=== PATIENT | male | born 1960 | race African-American/Black ===

== ENCOUNTER 2020-12-19 02:03 | Emergency (ER) | payer OTHER ==
[2020-12-19] MEDS ORDERED: SUCCINYLCHOLINE 20 MG/ML (10 ML) IV ONE (02:04)
[2020-12-19] MEDS ORDERED: ETOMIDATE 20 MG/10 ML VIAL IV ONE (02:04)
[2020-12-19 03:20] LABS: Absolute Lymphocytes (CBC) 2.8 K/uL (0.7-4.9); Basophils % 0.8 % (0-1.3); Lymphocytes % 37.2 % (15.3-44.8); MPV 9.8 fL (7.6-11.3); RBC Red Blood Cell Count 4.12 M/uL (4.33-5.43)
[2020-12-19 03:42] LABS: ALT/SGPT 140 U/L (12-78); AST/SGOT 169 U/L (15-37); Albumin 3.3 g/dL (3.4-5.0); Alkaline Phosphatase 369 U/L (45-117); BUN Blood Urea Nitrogen 53 mg/dL (7-18); Bicarbonate 17 mmol/L (21-32); Bilirubin Direct 0.2 mg/dL (0-0.2); Bilirubin Total 0.5 mg/dL (0.2-1.0); Glucose Level 217 mg/dL (74-106); Lipase 177 U/L (73-393); Magnesium 2.7 mg/dL (1.8-2.4); NT PRO-BNP > 35000 pg/mL (<125); Potassium 3.5 mmol/L (3.5-5.1); Protein, Total 7.7 g/dL (6.4-8.2); Sodium Level 144 mmol/L (136-145); Troponin (Emerg Dept Use Only) 0.03 ng/mL (0.0-0.045)
[2020-12-19] MEDS ORDERED: NA CHLORIDE 0.9% 500 ML ONE ×2 (03:54→05:39)
[2020-12-19] MEDS ORDERED: ATROPINE SULF 1 MG/10 ML SYR IV ONE (03:54)
[2020-12-19] MEDS ORDERED: INSULIN -REGULAR HUMAN 50 UNIT/0.5 ML ML ONE (04:01)
[2020-12-19] MEDS ORDERED: RSI MEDICATION KIT IV ONE (04:02)
[2020-12-19] MEDS ORDERED: D50W 50 ML IV ONE (04:02)
[2020-12-19] MEDS ORDERED: DOPAMINE/D5W 400 MG/250 ML BAG IV ONE (04:07)
[2020-12-19] MEDS ORDERED: CALCIUM GLUCONATE 1 GM IVPB 1 GM/50 ML BAG IV ONE (04:11)
[2020-12-19] MEDS ORDERED: MIDAZOLAM HCL 2 MG/2 ML INJ ONE ×2 (04:21→05:39)
[2020-12-19] MEDS ORDERED: FENTANYL CITR 100 MCG/2 ML ONE ×2 (04:57→05:39)
[2020-12-19] MEDS ORDERED: HEPARIN/D5W 25,000 UNIT/500 ML BAG IV ONE (06:00)
[2020-12-19] MEDS ORDERED: HEPARIN 5000 UNIT/ML 1 ML VIAL ONE (06:00)
--- NOTE | 2020-12-19 06:04 | ER ---
Nurse's Notes [facility] Name: Parish Chacon Age: 59 yrs Sex: Male : 1960 Arrival Date: 12/19/2020 Time: 02:06 Bed 3 Private MD: Diagnosis: Bradycardia, unspecified;Syncope and collapse;Altered mental status, unspecified;Cardiogenic shock Presentation: 12/19 02:10 Chief complaint: EMS states: was toned for syncopal episode and AMS, Pt with Hx of ESRD wh on HD and HIV. Coronavirus screen: Client denies travel out of the [place] in the last 14 days. Ebola Screen: Patient negative for fever greater than or equal to 101.5 degrees Fahrenheit, and additional compatible Ebola Virus Disease symptoms Patient denies exposure to infectious person. Initial Sepsis Screen: Does the patient meet any 2 criteria? No. Patient's initial sepsis screen is negative. Does the patient have a suspected source of infection? No. Patient's initial sepsis screen is negative. Risk Assessment: Do you want to hurt yourself or someone else? Patient reports no desire to harm self or others. Onset of symptoms was December 19, 2020. 02:10 Method Of Arrival: EMS: [facility] 02:10 Acuity: HAYLIE 3 Historical: - Allergies: 04:15 NKA; wh - PMHx: 04:15 AIDS; CVA; Dialysis; ENCEPHALOPATHY; ESRD; HIV; 04:16 HD; Diabetes - NIDDM; Seizures; wh - Immunization history:: Adult Immunizations unknown. - Family history:: not pertinent. - Social history:: Smoking status: unknown. - Hospitalizations: : No recent hospitalization is reported. Screenin:30 Abuse screen: Denies threats or abuse. Denies injuries from another. Nutritional screening: No deficits noted. Tuberculosis screening: No symptoms or risk factors identified. Fall Risk Secondary diagnosis (15 points) impaired mobility, CVA. Assessment: 02:20 General: Appears distressed, Behavior is restless. Pain: Denies pain. Neuro: Level of wh Consciousness is awake, alert, Oriented to person, place. Cardiovascular: Heart tones S1 S2 Rhythm is sinus bradycardia. Respiratory: Reports shortness of breath Airway is patent Respiratory effort is even, unlabored, Respiratory pattern is regular, symmetrical, Breath sounds are clear bilaterally. GI: Abdomen is flat, non-distended. : No deficits noted. EENT: No deficits noted. Derm: Skin is intact. Musculoskeletal: Amputation of left leg. 02:45 Reassessment: Pt still shouting, C/O shortness of breath, Sats WNL on RA, placed Pt on wh 2LNC for comfort. 03:00 Reassessment: Patient appears in no apparent distress at this time. Pt became hypotensive, notified Provider. 03:30 Reassessment: Pt was transferred to Trauma room 6 for intubation. 03:45 Reassessment: Dr Soliman gave verbal order for intubation RT notified. bb 03:50 Reassessment: Dr Soliman, Parker RT, Juana RT, yobany RN, Nadia RN, Nadeem RN, Jeanine RN, INES duron RN, and Jamal RN at bedside for intubation. Pt intubated with 7.5 ETT, 24 cm at the teeth, positive color change and bilateral breath sounds noted, X-Ray ordered for placement. 04:05 Reassessment: pt to CT scan on ventilator accompanied by RT and Nadia MADDEN. bb 05:15 Reassessment: Pt resting with eyes closed, respirations assisted, ETT in place 22 at ea the teeth. OG tube in place to low intermittent suction. Torres catheter in place to BSD with no output noted at this time. IV sites intact patent with fluid infusing, no erythema or edema noted at this time. 06:38 Reassessment: Pt resting with eyes closed, respirations assisted, ETT in place 22 at ea the teeth. OG tube in place to low intermittent suction. Torres catheter in place to BSD with no output noted at this time. IV sites intact patent with fluid infusing, no erythema or edema noted at this time. Life flight at facility for transfer, pt left ED via stretcher per life flight. Vital Signs: 02:10 BP 95 / 76; Pulse 54; Resp 18; Temp 96.2; Pulse Ox 95% on R/A; Weight 77.11 kg; Height 5 ft. 10 in. (177.80 cm); 03:00 BP 78 / 54; Pulse 41; Resp 18; Pulse Ox 94% on R/A; wh 03:30 BP 68 / 53; Pulse 38; Resp 18; Pulse Ox 94% on R/A; wh 03:53 BP 59 / 21; Pulse 65; Resp 20 A; Pulse Ox 94% on 15% BVM; bb 04:03 BP 97 / 72; Pulse 75; Resp 19 A; Pulse Ox 100% on 50% FiO2 ETT vent; bb 05:54 BP 100 / 78; Pulse 65; Resp 13; Temp 92.8; Pulse Ox 100% ; ea 06:50 BP 107 / 67; Pulse 63; Resp 18; Temp 93; Pulse Ox 100% ; ea 02:10 Body Mass Index 24.39 (77.11 kg, 177.80 cm) wh 05:54 pt currently on emmanuel hugger ea ED Course: 02:06 Patient arrived in ED. bb 02:16 Jose Angel Soliman MD is Attending Physician. rn 02:24 Jeanine Woods RN is Primary Nurse. wh 03:10 XRAY CXR (1 view) In Process Unspecified. EDMS 03:55 Assisted provider with intubation using 7.5 mm ETT via oral route. ET tube secured at bb 24cm at the teeth. Set up intubation tray. Intubated by Jose Angel Soliman MD Placement verified by CO2 detector w/ + color change, auscultating bilateral breath sounds, CXR, Patient tolerated well. 04:12 Triage completed. wh 04:20 NGT: inserted 16 Fr. other OG verified return of gastric contents, to intermittent ea suction. Returned gastric contents. Patient tolerated well. 04:27 CT Head Brain wo Cont In Process Unspecified. EDMS 04:27 CT Chest Abdomen Pelvis W/O Contrast In Process Unspecified. EDMS 04:32 CXR XRAY In Process Unspecified. EDMS 04:35 Inserted saline lock: 22 gauge in right hand, using aseptic technique. ea 04:40 Torres cath inserted, using sterile technique, 16 Fr., by ne, balloon inflated, to ea gravity drainage. 05:11 Initiated transfer at [facility] with Marianne. Stated she would do a bed check and tt3 call back. 05:23 Marianne called back and stated at this time they have to decline due to no ICU beds. tt3 She stated to try again a little after 0700 and they may have a bed available. Information passed on to Dr. Soliman. 05:34 Initiated transfer at [facility] with Allyson Green. Stated she would do a tt3 capacity check and call back. 06:42 XRAY Chest (1 view) In Process Unspecified. EDMS 06:48 Primary Nurse role handed off by Jeanine Woods, RN tt3 06:51 Patient transferred, IV remains in place. ea Administered Medications: 03:23 Drug: NS 0.9% 500 ml Route: IV; Rate: bolus; Site: right forearm; 03:25 Drug: Atropine 0.5 mg Route: IVP; Site: right forearm; 06:56 Follow up: Response: No adverse reaction ea 03:30 Drug: D50W 50 ml Route: IVP; Site: right forearm; 06:56 Follow up: Response: No adverse reaction ea 03:32 Drug: Insulin Regular Human 5 units {Co-Signature: al (Philip Alcantar RN).} Route: IVP; Site: right forearm; 04:00 Follow up: Response: No adverse reaction ea 03:50 Drug: Dopamine drip 5 mcg/kg/min - (DOPamine 400 mg, D5W 250 ml) Route: IV; Rate: bb calculated rate; Site: right forearm; 03:53 Drug: Etomidate 20 mg Route: IVP; Site: right forearm; bb 06:56 Follow up: Response: No adverse reaction ea 03:54 Drug: Succinylcholine 120 mg Route: IVP; Site: right forearm; bb 06:57 Follow up: Response: No adverse reaction ea 04:05 Drug: Versed (midazolam) 2 mg Route: IVP; Site: right forearm; bb 06:56 Follow up: Response: No adverse reaction ea 04:09 Not Given (Physician Discretion): Calcium Gluconate 1 grams IVPB once over 60 mins; (mix in NS 100 mL) 05:28 Drug: fentaNYL (PF) 50 mcg Route: IVP; Site: right femoral; ea 06:58 Follow up: Response: No adverse reaction ea 05:30 Drug: Versed (midazolam) 2 mg Route: IVP; Site: right femoral; ea 06:58 Follow up: Response: No adverse reaction ea 05:35 Drug: Sodium Bicarbonate 1 amp Route: IVP; Site: right femoral; ea 06:57 Follow up: Response: No adverse reaction ea 05:48 Drug: Heparin (TX-Bolus No thrombolytic) - HEParin 60 units/kg {Co-Signature: (Jeanine Woods RN).} Route: IVP; Site: right femoral; 06:57 Follow up: Response: No adverse reaction ea 05:48 Drug: Heparin (TX Drip) 12 units/kg/hr - (HEParin 70628 units, D5W 500 ml) ea {Co-Signature: wh (Jeanine Woods RN).} Route: IV; Rate: calculated rate; Site: right femoral; 06:57 Follow up: Response: No adverse reaction; IV Status: Infusion continued upon transfer ea 06:20 Drug: Sodium Bicarbonate 1 amp Route: IVP; Site: right femoral; ea 06:57 Follow up: Response: No adverse reaction ea Ventilator: 04:13 Fi02: 50%; Rate: 16min; T.V.: 500ml; Peep: 5cm; Mode: CMV; ET tube: 7.5 mm (Oral); domi Outcome: 06:03 ER care complete, transfer ordered by . rn 06:36 Condition: stable ea 06:36 Instructed on the need for transfer. 06:52 Transferred by helicopter to [facility], Transfer form completed. ea 06:55 Patient left the ED. ea Signatures: Dispatcher [employer] EDMS Sierra Briceño RN RN bb Nieto, Roman, MD MD rn Antunez, Elena, RN RN ea Habalo, Winsy, RN RN wh Trim, Tyler tt3 Philip Alcantar RN [email or web address] Jeanine Woods RN Corrections: (The following items were deleted from the chart) 05:07 02:10 BP 95 / 76; Pulse 6bpm; Resp 29bpm; Pulse Ox 95% RA; Temp 97.2F; 77.11 kg; Height wh 5 ft. 10 in.; BMI: 24.3; wh 06:17 02:10 BP 95 / 76; Pulse 6bpm; Resp 29bpm; Pulse Ox 95% RA; Temp 97.2F; 77.11 kg; Height wh 5 ft. 10 in.; BMI: 24.3; wh
--- NOTE | 2020-12-19 06:04 | EDPHYS ---
Physician Documentation [facility] Name: Parish Chacon Age: 59 yrs Sex: Male : 1960 Arrival Date: 12/19/2020 Time: 02:06 Bed 3 Private MD: ED Physician Jose Angel Soliman HPI: 12/19 03:02 This 59 yrs old Black Male presents to ER via Unassigned with complaints of AMS, sob. rn 03:02 The patient has shortness of breath at rest. Onset: The symptoms/episode began/occurred rn at an unknown time. Duration: The symptoms are continuous. The patient's shortness of breath is aggravated by nothing, is alleviated by nothing. Associated signs and symptoms: Pertinent negatives: fever, hemoptysis. Severity of symptoms: At their worst the symptoms were moderate in the emergency department the symptoms are unchanged. It is unknown whether or not the patient has had similar symptoms in the past. It is unknown whether or not the patient has recently seen a physician. Per EMS, someone called 911 for AMS, sob, possible syncope. No seizure activity noted by EMS, no meds given. Patient reports hx of ESRD, HIV, and states "i can't breathe". No abd pain. . Historical: - Allergies: 04:15 NKA; wh - PMHx: 04:15 AIDS; CVA; Dialysis; ENCEPHALOPATHY; ESRD; HIV; wh 04:16 HD; Diabetes - NIDDM; Seizures; wh - Immunization history:: Adult Immunizations unknown. - Family history:: not pertinent. - Social history:: Smoking status: unknown. - Hospitalizations: : No recent hospitalization is reported. ROS: 03:02 Unable to obtain ROS due to altered mental status. rn Exam: 03:02 Constitutional: Thin male, + mild tachypnea, seems agitated Head/Face: Normocephalic, rn atraumatic. ENT: dry MM, no stridor Cardiovascular: Bradycardic, irregular. No pulse deficits. Respiratory: + mild tachypnea, + diminished at bases. Abdomen/GI: soft, non-tender Skin: Warm, dry with normal turgor. Normal color with no rashes, no lesions, and no evidence of cellulitis. MS/ Extremity: + LLE AKA Neuro: Awake, alert, uncooperative, only says "i can't breathe" Vital Signs: 02:10 BP 95 / 76; Pulse 54; Resp 18; Temp 96.2; Pulse Ox 95% on R/A; Weight 77.11 kg; Height wh 5 ft. 10 in. (177.80 cm); 03:00 BP 78 / 54; Pulse 41; Resp 18; Pulse Ox 94% on R/A; wh 03:30 BP 68 / 53; Pulse 38; Resp 18; Pulse Ox 94% on R/A; wh 03:53 BP 59 / 21; Pulse 65; Resp 20 A; Pulse Ox 94% on 15% BVM; bb 04:03 BP 97 / 72; Pulse 75; Resp 19 A; Pulse Ox 100% on 50% FiO2 ETT vent; bb 05:54 BP 100 / 78; Pulse 65; Resp 13; Temp 92.8; Pulse Ox 100% ; ea 06:50 BP 107 / 67; Pulse 63; Resp 18; Temp 93; Pulse Ox 100% ; ea 02:10 Body Mass Index 24.39 (77.11 kg, 177.80 cm) 05:54 pt currently on emmanuel hugger ea Ventilator: 04:13 Fi02: 50%; Rate: 16min; T.V.: 500ml; Peep: 5cm; Mode: CMV; ET tube: 7.5 mm (Oral); bb Procedures: 04:14 Intubation: Ventilated with 100% NRB prior to procedure. O2 saturation prior to employee benefits attorney was 94 %. Intubated orally using # 4 Rudy blade with 7.5 mm ETT. was successful on first attempt. Cricoid pressure applied during procedure. Tube secured with ETT samson at right side of mouth measured 23 cm at teeth. Placement verified by CO2 detector with (+) color change, auscultating bilateral breath sounds, O2 saturation after procedure was 96 %. Patient tolerated well. 05:57 Central Line: the site was prepped with Betadine, a triple lumen catheter was inserted, rn in the right femoral vein, in 1 attempts. placement was verified, by blood return, the site was dressed with Tegaderm, using sterile technique, the patient tolerated the procedure, well. MDM: 02:16 Patient medically screened. rn 04:14 ED course: Pt became more bradycardic, altered, hypotensive, treated empirically for rn hyperkalemia given ESRD patient with irregular and bradycardic rhythm prior to obtaining bloodwork given unstable vitals. Pt also intubated for airway protection and patient was not cooperating with IV placement or treatment/imaging. Started on dopamine with improvement of vitals including elevation of HR and BP, sent to CT.. 05:13 ED course: No acute findings on CT head/chest/abdomen/pelvis, most likely symptomatic rn bradycardia with syncope at home and AMS here. Intubated, improved vitals, on dopamine drip. Neg trop. K+ normal. Will attempt transfer to [facility] ICU given severe bradycardia and possible need for pacemaker, as well as no icu beds here. . 05:57 ED course: [facility] states no ICU bed currently, think might have one at shift change.. rn 06:01 Differential diagnosis: Myocardial Infarction pneumonia, Pneumothorax pulmonary edema, rn Unstable Angina symptomatic bradycardia. Data reviewed: vital signs, nurses notes, lab test result(s), EKG, radiologic studies, CT scan, plain films, and as a result, I will admit patient. Counseling: I had a detailed discussion with the patient and/or guardian regarding: the historical points, exam findings, and any diagnostic results supporting the discharge/admit diagnosis, lab results, radiology results, the need to transfer to another facility, for higher level of care, [facility] does not immediately have the required specialist. Response to treatment: the patient's symptoms have mildly improved after treatment, and as a result, I will admit patient. Admission orders: after a detailed discussion of the patient's condition and case, the admit orders are written by me. ED course: Pt accepted by Dr. Correa at [facility] without conference. . 06:01 ED course: Requesting lifeflight. rn 12/19 02:21 Order name: Blood Culture Adult (2) rn 12/19 02:21 Order name: BMP; Complete Time: 05: rn 12/19 02:21 Order name: CBC with Diff; Complete Time: 03:31 rn 12/19 02:21 Order name: Hepatic Function; Complete Time: 05: rn 12/19 02:21 Order name: Lipase; Complete Time: 05: rn 12/19 02:21 Order name: Magnesium; Complete Time: 05: rn 12/19 02:21 Order name: XRAY CXR (1 view) rn 12/19 02:21 Order name: NT PRO-BNP; Complete Time: 05:06 rn 12/19 02:21 Order name: Troponin (emerg Dept Use Only); Complete Time: 05:06 rn 12/19 02:22 Order name: Procalcitonin; Complete Time: 05:06 rn 12/19 03:06 Order name: COVID-19 : Document "Date of Symptom Onset" if Symptomatic. [email or web address] 12/19 03:09 Order name: Glucose, Ancillary Testing; Complete Time: 03:31 EDMS 12/19 04:05 Order name: SARS-COV-2 RT PCR; Complete Time: 05:06 EDMS 12/19 02:22 Order name: CT Head Brain wo Cont rn 12/19 03:58 Order name: CT Chest Abdomen Pelvis W/O Contrast rn 12/19 04:09 Order name: CXR XRAY tt3 12/19 05:12 Order name: XRAY Chest (1 view) rn 12/19 02:21 Order name: EKG; Complete Time: 02:22 rn 12/19 02:21 Order name: Cardiac monitoring; Complete Time: 03:14 rn 12/19 02:21 Order name: EKG - Nurse/Tech; Complete Time: 03:14 rn 12/19 02:21 Order name: IV Saline Lock; Complete Time: 03:14 rn 12/19 02:21 Order name: Labs collected and sent; Complete Time: 03:14 rn 12/19 02:21 Order name: O2 Per Protocol; Complete Time: 03:15 rn 12/19 02:22 Order name: O2 Sat Monitoring; Complete Time: 03:15 rn Administered Medications: 03:23 Drug: NS 0.9% 500 ml Route: IV; Rate: bolus; Site: right forearm; wh 03:25 Drug: Atropine 0.5 mg Route: IVP; Site: right forearm; wh 06:56 Follow up: Response: No adverse reaction ea 03:30 Drug: D50W 50 ml Route: IVP; Site: right forearm; wh 06:56 Follow up: Response: No adverse reaction ea 03:32 Drug: Insulin Regular Human 5 units {Co-Signature: [email or web address] (Philip Alcantar RN).} Route: wh IVP; Site: right forearm; 04:00 Follow up: Response: No adverse reaction ea 03:50 Drug: Dopamine drip 5 mcg/kg/min - (DOPamine 400 mg, D5W 250 ml) Route: IV; Rate: bb calculated rate; Site: right forearm; 03:53 Drug: Etomidate 20 mg Route: IVP; Site: right forearm; bb 06:56 Follow up: Response: No adverse reaction ea 03:54 Drug: Succinylcholine 120 mg Route: IVP; Site: right forearm; bb 06:57 Follow up: Response: No adverse reaction ea 04:05 Drug: Versed (midazolam) 2 mg Route: IVP; Site: right forearm; bb 06:56 Follow up: Response: No adverse reaction ea 04:09 Not Given (Physician Discretion): Calcium Gluconate 1 grams IVPB once over 60 mins; ata (mix in NS 100 mL) 05:28 Drug: fentaNYL (PF) 50 mcg Route: IVP; Site: right femoral; ea 06:58 Follow up: Response: No adverse reaction ea 05:30 Drug: Versed (midazolam) 2 mg Route: IVP; Site: right femoral; ea 06:58 Follow up: Response: No adverse reaction ea 05:35 Drug: Sodium Bicarbonate 1 amp Route: IVP; Site: right femoral; ea 06:57 Follow up: Response: No adverse reaction ea 05:48 Drug: Heparin (ME-Bolus No thrombolytic) - HEParin 60 units/kg {Co-Signature: ata (Jeanine Woods RN).} Route: IVP; Site: right femoral; 06:57 Follow up: Response: No adverse reaction ea 05:48 Drug: Heparin (ME Drip) 12 units/kg/hr - (HEParin 87246 units, D5W 500 ml) ea {Co-Signature: ata (Jeanine Woods RN).} Route: IV; Rate: calculated rate; Site: right femoral; 06:57 Follow up: Response: No adverse reaction; IV Status: Infusion continued upon transfer ea 06:20 Drug: Sodium Bicarbonate 1 amp Route: IVP; Site: right femoral; ea 06:57 Follow up: Response: No adverse reaction ea Disposition: 06:01 Critical Care:. rn Disposition: 12/19/20 06:03 Transfer ordered to [facility]. Diagnosis are Bradycardia, unspecified, Syncope and collapse, Altered mental status, unspecified, Cardiogenic shock. - Reason for transfer: Higher level of care. - Accepting physician is Dr. Correa. - Condition is Serious. - Problem is new. - Symptoms have improved. Critical care time excluding procedures: 06:01 Critical care time: Bedside Care: 45 minutes. Total time: 45 minutes rn Signatures: Dispatcher [employer] EDCA Sierra Briceño, RN Jose Angel Wylie MD MD rn Antunez, Elena, RN RN ea Habalo, Winsy, RN RN wh Joseph Malcaba RN jmDeborah Woods RN Corrections: (The following items were deleted from the chart) 03:12 03:06 CORONAVIRUS ordered. EDCA EDMS 05:15 03:02 Constitutional: Thin male, + mild tachypnea, seems agitated Head/Face: rn Normocephalic, atraumatic. ENT: dry MM, no stridor Cardiovascular: Bradycardic, irregular. No pulse deficits. Respiratory: + mild tachypnea, + diminished at bases. Abdomen/GI: soft, non-tender Skin: Warm, dry with normal turgor. Normal color with no rashes, no lesions, and no evidence of cellulitis. MS/ Extremity: Pulses equal, no cyanosis. Neurovascular intact. Full, normal range of motion. Equal circumference. Neuro: Awake, alert, uncooperative, only says "i can't breathe" rn 06:55 06:03 12/19/2020 06:03 Transfer ordered to [facility]. Diagnosis is ea Bradycardia, unspecified; Syncope and collapse; Altered mental status, unspecified; Cardiogenic shock. Reason for transfer: Higher level of care. Accepting physician is Dr. Correa. Condition is Serious. Problem is new. Symptoms have improved. rn
[2020-12-19] MEDS ORDERED: SODIUM BICARB 50 MEQ/50ML VIAL ONE (06:34)
--- NOTE | 2020-12-19 07:15 | RAD REPORT ---
EXAM DESCRIPTION: Al Single View12/19/2020 4:31 am CLINICAL HISTORY: Device placement endotracheal tube placement IMPRESSION: An endotracheal tube has been inserted with its tip well 15 millimeters above the tonio . The tip overlies mid to distal aspect of the aortic arch.
--- NOTE | 2020-12-19 07:16 | RAD REPORT ---
EXAM DESCRIPTION: Al Single View12/19/2020 6:43 am CLINICAL HISTORY: Device placement endotracheal tube placement IMPRESSION: An endotracheal tube has been retracted. The tip overlies the top of the aortic arch. Nasogastric tube is coiled within the stomach. The tip lies within the gastric fundus 3 centimeters f rom the GE junction
[2020-12-19 07:33] VITALS: O2SAT 100
[2020-12-19 07:36] VITALS: BP 107/67; TEMP 93
--- NOTE | 2020-12-19 11:01 | RAD REPORT ---
EXAM DESCRIPTION: Al Single View12/19/2020 3:10 am CLINICAL HISTORY: DYSPNEA TECHNIQUE: Single frontal view of the chest is submitted. COMPARISON: None available for comparison FINDINGS: Lungs: Mild central pulmonary vascular and interstitial prominence and patchy bilateral pe rihilar opacities. Pleura: No appreciable effusion. No pneumothorax. Heart: The cardiothoracic silhouette is enlarged. Mediastinum: Thoracic aortic atherosclerosis. Bones: Intact Upper abdomen: Unremarkable IMPRESSION: Findings which may be related to mild pulmonary congestion. Superimposed infection not e xcluded. Electronically signed by: Abi Garcia MD 12/19/2020 3:19 AM CDT Due to temporary technical issues with the PACS/Fluency reporting system, reports are being signed by the in house radiologist without review as a courtesy to ensure prompt reporting. The interpreting r adiologist is fully responsible for the content of the report.
--- NOTE | 2020-12-19 11:28 | RAD REPORT ---
EXAM DESCRIPTION: CT - Chest Abd Pelvis Wo Con - 12/19/2020 6:54 am ADDENDUM #1 Dr. Soliman confirmed results received [address] 12/19/20. Electronically signed by: Asiya Lundy MD 12/19/2020 6:09 AM CDT End of Addendum EXAM: CT Chest, Abdomen and Pelvis Without Intravenous Contrast CLINICAL HISTORY: The patient is 59 years old and is Male; AMS, ESRD, SOB TECHNIQUE: Axial computed tomography images of the chest, abdomen and pelvis without intravenous con trast. Sagittal and coronal reformatted images were created and reviewed. This CT exam was perfor med using one or more of the following dose reduction techniques: automated exposure control, adjus tment of the mA and/or kV according to patient size, and/or use of iterative reconstruction technique . COMPARISON: No relevant prior studies available. FINDINGS: CHEST: Lungs: No pulmonary consolidation or groundglass opacities to suggest pneumonia. Subsegmental atelectasis right lower lobe. Pleural space: No pleural effusion or pneumothorax. Heart: Cardiomegaly. Coronary artery calcifications. No significant pericardial effusion. ABDOMEN: Liver: Unremarkable. Gallbladder and bile ducts: Gallbladder not visualized, contracted or removed. No ductal dilation. Pancreas: Unremarkable. No ductal dilation. Spleen: Unremarkable. No splenomegaly. Adrenals: Unremarkable. No mass. Kidneys and ureters: Left renal simple cyst, 1.7 cm. No follow-up imaging recommended. Small kidneys. No hydronephrosis. Stomach and bowel: Small and large bowel are not well distended. The possibility of mild colitis is not completely excluded. Stomach is distended with fluid and gas. No gastric wall thickening. PELVIS: Appendix: No findings to suggest acute appendicitis. Bladder: Bladder is nearly empty. No stones. Reproductive: Enlarged prostate gland. CHEST, ABDOMEN and PELVIS: Intraperitoneal space: Free fluid in the pelvis. No free air. Bones/joints: Right femoral neck screws. No acute fracture. No dislocation. Soft tissues: Umbilical hernia containing fat and a minimal amount of free fluid. No findings to suggest edema/incarceration. Bilateral gynecomastia. Vasculature: Prominent atherosclerotic calcification in the abdomen and pelvis. No aortic aneurysm. Lymph nodes: Unremarkable. No pathologically enlarged lymph nodes. Tubes, lines and devices: ET tube is in the proximal right mainstem bronchus. IMPRESSION: 1. ET tube is in the proximal right mainstem bronchus. 2. Small and large bowel are not well distended. The possibility of mild colitis is not completely excluded. Clinical correlation suggested. 3. Stomach is distended with fluid and gas. No gastric wall thickening. 4. Free fluid in the pelvis. 5. Enlarged prostate gland. 6. Small kidneys. 7. Additional non-emergent findings as above. Electronically signed by: Asiya Lundy MD 12/19/2020 4:48 AM CDT Due to temporary technical issues with the PACS/Fluency reporting system, reports are being signed by the in house radiologist without review as a courtesy to ensure prompt reporting. The interpreting r adiologist is fully responsible for the content of the report.
--- NOTE | 2020-12-19 11:32 | RAD REPORT ---
EXAM DESCRIPTION: CT - Head Brain Wo Cont - 12/19/2020 6:54 am CLINICAL HISTORY: The patient is 59 years old and is Male; CONFUSED TECHNIQUE: Axial computed tomography images of the head/brain without intravenous contrast. Sagitt al and coronal reformatted images were created and reviewed. This CT exam was performed using one o r more of the following dose reduction techniques: automated exposure control, adjustment of the mA and/or kV according to patient size, and/or use of iterative reconstruction technique. COMPARISON: No relevant prior studies available. FINDINGS: Brain: Moderate cerebral atrophy. Moderate nonspecific white matter changes likely related to chronic microvascular ischemic d isease. 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 No hemorrhage. Ventricles: Ex vacuo dilatation of the right lateral ventricle/temporal horn. Bones/joints: Unremarkable. No acute fracture. Soft tissues: Unremarkable. Sinuses: Left maxillary sinus retention cyst or polyp. Mastoid air cells: Unremarkable as visualized. No mastoid effusion. IMPRESSION: No acute intracranial abnormality. Electronically signed by: Jhon Urbina MD 12/19/2020 4:49 AM CDT Due to temporary technical issues with the PACS/Fluency reporting system, reports are being signed by the in house radiologist without review as a courtesy to ensure prompt reporting. The interpreting r adiologist is fully responsible for the content of the report.
--- NOTE | 2020-12-20 07:21 | EKG ---
Test Date: 2020-12-19 Test Time: 02:42:19 Raised Printer: MAIA MEASUREMENT RESULTS: Intervals: Rate: 42 UT: QRSD: 118 QT: 468 QTc: 390 [place]: P: UT: QRS: 113 T: -8 INTERPRETIVE STATEMENTS: Junctional bradycardia with occasional premature ventricular complexes Right axis deviation Possible Right ventricular hypertrophy ST & T wave abnormality, consider inferior ischemia Abnormal ECG Compared to ECG 02/11/2017 13:28:15 Ventricular premature complex(es) now present Right-axis deviation now present ST (T wave) deviation now present Possible ischemia now present Sinus bradycardia no longer present First degree AV block no longer present Electronically Signed On 12-20-20 07:18:13 CDT by Spencer Lopez
--- NOTE | 2020-12-20 07:21 | EKG ---
Test Date: 2020-12-19 Test Time: 05:25:30 [employer] Director: YOUNG MEASUREMENT RESULTS: Intervals: Rate: 65 NH: 130 QRSD: 140 QT: 502 QTc: 522 [place]: P: NH: 130 QRS: 112 T: 264 INTERPRETIVE STATEMENTS: Normal sinus rhythm Right axis deviation Nonspecific intraventricular block Marked T wave abnormality, consider inferior ischemia Marked T wave abnormality, consider anterolateral ischemia Abnormal ECG Compared to ECG 12/19/2020 02:42:19 T-wave abnormality now present Ventricular premature complex(es) no longer present ST (T wave) deviation no longer present Possible ischemia still present Electronically Signed On 12-20-20 07:18:11 CDT by Spencer Lopez
== END 2020-12-19 06:55 | disposition short-term general hospital (02) ==
LOC: ER 02:03
PROC: 0BH17EZ Insertion of Endotracheal Airway into Trachea, Via Natural or Artificial Opening (ICD-10-PCS; principal; 2020-12-19)
PROC: 06HT33Z Insertion of Infusion Device into Right Foot Vein, Percutaneous Approach (ICD-10-PCS; 2020-12-19)
DX: R57.0 Cardiogenic shock (principal); R00.1 Bradycardia, unspecified; Z20.822 Contact with and (suspected) exposure to COVID-19; E11.22 Type 2 diabetes mellitus with diabetic chronic kidney disease; N18.6 End stage renal disease; Z99.2 Dependence on renal dialysis; B20 Human immunodeficiency virus [HIV] disease
CPT/HCPCS: 93005 ×2; 87040; 85025; 80048; 36415; 83735; 82947; 80076; 84484; 83690; 84145; 83880; 70450; 71250; 74176; 71045 ×3; 31500; 36556; U0003; J0330; J1644 ×2; J2250 ×2; J3010 ×2; J0610; J1265; J7040 ×2; 51702; 99291; 99292